=== PATIENT | female | born 1990 | race Caucasian/White ===

== ENCOUNTER 2016-09-21 19:54 | Emergency (ER) | payer OTHER ==
[~2016-09-21] VITALS: Ht 160 cm; Wt 51.5 kg
[2016-09-21 19:59] VITALS: Ht 160 cm; Wt 51.5 kg
[2016-09-21] MEDS ORDERED: DIPHENHYDRAMINE 25 MG CAP PO ONE (21:00)
[2016-09-21] MEDS ORDERED: predniSONE 20 MG TAB PO ONE (21:00)
[2016-09-21] MEDS ORDERED: TRIA15CR55 TOP (21:14)
[2016-09-21] MEDS ORDERED: PRED20TA PO (21:14)
[2016-09-21] MEDS ORDERED: BEN25 PO (21:18)
--- NOTE | 2016-09-21 22:08 | ERD ---
ER Documentation Chief Complaint Date/Time DATE: 09/21/16 TIME: 22:01 Chief Complaint PT REPORTS ECZEMA EXACERBATION HPI 26-year-old female patient with a past medical history of eczema presents to the ED complaining of exacerbation of her rashes that have occurred for the last 2 weeks. Patient states that it started in her lip region and started to itch near her forehead neck and chest region. States that she has been scratching significantly. States that her symptoms have worsened due to the heat. States that she is tried taking Benadryl without relief. States that she has never seen a assembler flexible leads. Denies any fever, chills, nausea, vomiting , loss of sensation, loss of range of motion. Denies any exposure to pets or insects. Denies any new use of soaps or detergents. Denies receiving an allergy test. ROS All systems reviewed and are negative except as per history of present illness. Medications Home Meds Active Scripts Diphenhydramine Hcl* (Benadryl*) 25 Mg Cap, 25 MG PO Q6 Y for ITCHING/RASH, #30 TAB Prov:RAJANI GARCIA PA-C 09/21/16 Triamcinolone Acetonide (Triamcinolone Acetonide) 0.1% - 15 Gm Cream.gm., 1 APPLIC TOP BID, #1 TUB Prov:RAJANI GARCIA PA-C 09/21/16 Prednisone* (Prednisone*) 20 Mg Tab, 40 MG PO DAILY for 4 Days, TAB Prov:RAJANI GARCIA PA-C 09/21/16 PMhx/Soc Hx Miscellaneous Medical Probl: No (ECZEMA) Hx Alcohol Use: No Hx Substance Use: No Hx Tobacco Use: No Smoking Status: Never smoker Physical Exam Vitals Vital Signs Date Time Temp Pulse Resp B/P Pulse Ox O2 Delivery O2 Flow Rate FiO2 09/21/16 19:59 99.3 85 18 117/56 99 Physical Exam Const: [id number], well-nourished. In no acute distress. Head: Atraumatic, normocephalic Eyes: Normal Conjunctiva without injection. No purulent discharge. PERRL. EOMI ENT: Normal external ear. Ear canal without erythema. Tympanic membrane pearly shabazz without effusion or bulging. Nasal canal clear with normal turbinates. Moist oropharynx without tonsillar exudates. Non-erythematous pharynx. Uvula midline. No drooling. No trismus. No angioedema noted. Neck: Full range of motion. No meningismus. No cervical lymphadenopathy. Resp: Clear to auscultation bilaterally. No wheezing, rhonchi, rales, or crackles. No accessory muscle use. No retractions. Cardio: Regular rate and rhythm. No murmurs, rubs or gallops. Abd: Soft, non tender, non distended. Normal bowel sounds. No palpable masses. No rebound tenderness. No guarding. Skin: No petechiae, purpura. Erythematous diffuse rash is with lichenification secondary to scratching noted on patient's flexor surface of left elbow, chest, periorbital structures, lips and cheeks. No fluctuance or induration. No bleeding noted. Back: No midline tenderness. No CVA tenderness. Ext: No cyanosis, or edema. Neur: Awake and alert. Psych: Normal Mood and Affect Results 24 hrs Current Medications Medications (Trade) Dose Ordered Sig/Nehemias Route PRN Reason Start Time Stop Time Status Last Admin Dose Admin Prednisone (Prednisone) 60 mg ONCE ONCE PO 09/21/16 21:00 09/21/16 21:01 DC 09/21/16 21:05 Diphenhydramine HCl (Benadryl) 25 mg ONCE ONCE PO 09/21/16 21:00 09/21/16 21:01 DC 09/21/16 21:05 Procedures/MDM This is a 26-year-old female patient with a past medical history of eczema presents to the ED complaining of an exacerbation of her rashes. Patient is afebrile and nontoxic-appearing. Patient has normal vital signs. Patient likely has severe atopic dermatitis. Patient was treated here in the ED with prednisone 60 mg, Benadryl with improvement of her symptoms. Low suspicion for scabies, SJS/TEN, erythema multiforme, sepsis, cellulitis, necrotizing fascitis, gangrene, meningococcemia or other emergent conditions. Discharge medications: Benadryl, Triamcinolone, Prednisone Follow up with primary care physician in 1-2 days for a referral to see a assembler flexible leads. Instructed patient to return to the ED sooner for any worsening symptoms. Patient's questions were answered. Patient understood and agreed with discharge plan. Patient discharged stable. Departure Diagnosis: Primary Impression: Eczema Eczema type: flexural Qualified Code: L20.82 - Flexural eczema Condition: Stable Patient Instructions: Self-Care for Skin Rashes, Atopic Dermatitis (Eczema) Referrals: [facility] YOU HAVE RECEIVED A MEDICAL SCREENING EXAM AND THE RESULTS INDICATE THAT YOU DO NOT HAVE A CONDITION THAT REQUIRES URGENT TREATMENT IN THE EMERGENCY DEPARTMENT. FURTHER EVALUATION AND TREATMENT OF YOUR CONDITION CAN WAIT UNTIL YOU ARE SEEN IN YOUR DOCTORS OFFICE WITHIN THE NEXT 1-2 DAYS. IT IS YOUR RESPONSIBILITY TO MAKE AN APPOINTMENT FOR FOLOW-UP CARE. IF YOU HAVE A PRIMARY DOCTOR --you should call your primary doctor and schedule an appointment IF YOU DO NOT HAVE A PRIMARY DOCTOR YOU CAN CALL OUR PHYSICIAN REFERRAL HOTLINE AT IF YOU CAN NOT AFFORD TO SEE A PHYSICIAN YOU CAN CHOSE FROM THE FOLLOWING [facility] [address] [facility]. [facility] [address] [facility] [facility] [address] [facility] [address] [facility] [address] [facility]. [facility] [address] [facility]. [facility] YOU HAVE RECEIVED A MEDICAL SCREENING EXAM AND THE RESULTS INDICATE THAT YOU DO NOT HAVE A CONDITION THAT REQUIRES URGENT TREATMENT IN THE EMERGENCY DEPARTMENT. FURTHER EVALUATION AND TREATMENT OF YOUR CONDITION CAN WAIT UNTIL YOU ARE SEEN IN YOUR DOCTORS OFFICE WITHIN THE NEXT 1-2 DAYS. IT IS YOUR RESPONSIBILITY TO MAKE AN APPOINTMENT FOR FOLOW-UP CARE. IF YOU HAVE A PRIMARY DOCTOR --you should call your primary doctor and schedule and appointment IF YOU DO NOT HAVE A PRIMARY DOCTOR YOU CAN CALL OUR PHYSICIAN REFERRAL HOTLINE AT . IF YOU CAN NOT AFFORD TO SEE A PHYSICIAN YOU CAN CHOSE FROM THE FOLLOWING [facility] INSTITUTIONS: [facility] [address] [place] [address] [facility] [address] [place] [address] [facility] [address] [place] [address] [facility] URGENT CARE/SPECIALTIES Additional Instructions: FOLLOW UP WITH YOUR PRIMARY CARE PHYSICIAN TOMORROW for a referral to a assembler flexible leads. Return to this facility if you are not improving as expected - fever, increased redness, swelling, nausea, vomiting. RAJANI GARCIA PA-C Sep 21, 2016 22:08 RAJANI GARCIA PA-C Sep 21, 2016 22:08
== END 2016-09-21 21:25 | disposition home or self-care (01) ==
LOC: FTE 19:54
DX: L20.82 Flexural eczema (principal)
CPT/HCPCS: J7512; Z7502; Z7610; 99284